=== PATIENT | male | born 1975 | race Caucasian/White ===

== ENCOUNTER 2018-04-03 08:28 | Emergency (ER) | payer OTHER, MEDICARE ==
[~2018-04-03] VITALS: Ht 177.8 cm; Wt 93.0 kg
[~2018-04-03 08:28] MED LIST: ASPIRIN EC325 M2 PO; BUSPIRONE30 MG PO; CALCIUM 500 + D1 TAB PO; CLOZAPINE100 MG PO; CLOZAPINE25 MG PO; CLOZAPINE50 MG PO; COLACE100 MG PO; EPIPEN AUT0.3 MG/0.3 IM; GABAPENTIN400 M1 PO; HYDROCORTISONE2.51 TOP; LEVOTHROID0.175 MG PO; LITHIUM CARBON450 MG PO; MASON NATURAL2000 IU PO; NIASPAN1000 MG PO; OMEGA-31000 MG PO; OXYBUTYNIN5 MG PO; SERTRALINE HCL100 MG PO; SIMVASTATIN20 MG PO; TRILEPTAL300 MG PO
[2018-04-03 08:31] VITALS: BP 138/81
--- NOTE | 2018-04-03 08:42 | ED PSYCHIATRIC COMPLAINT ---
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 Exam Limitations: no limitations Vital Signs & Intake/Output Vital Signs & Intake/Output Vital Signs Date Time Temp Pulse Resp B/P B/P Pulse O2 O2 Flow FiO2 Mean Ox Delivery Rate 04/03 0836 99 Room Air 04/03 0831 98.2 80 18 138/81 98 Room Air Allergies Coded Allergies: bee venom protein (honey bee) (UNKNOWN 04/03/18) Reconcile Medications Aspirin (Ecotrin*) 325 MG TABLET.DR 1 TAB PO DAILY HEART HEALTH (Reported) BUSPIRONE HCL (Buspirone HCl) 30 MG TAB 1 TAB PO BID MENTAL HEALTH (Reported) Calcium/Vitamin D (Calcium + D) 500 MG/125 IU TAB 1 TAB PO BID SUPPLEMENT ( Reported) CHOLECALCIFEROL (VITAMIN D3) (Vitamin D) 2,000 IU SGL 1 CAP PO QAM SUPPLEMENT (Reported) Clozapine 25 MG TAB 1 TAB PO PRN MENTAL HEALTH (Reported) Clozapine 50 MG TAB 150 MG PO QPM MENTAL HEALTH (Reported) Clozapine 100 MG TAB 1 TAB PO QAM MENTAL HEALTH (Reported) Docusate Sodium (Colace) 100 MG SGL 1 CAP PO BID STOOL SOFTENER (Reported) Epinephrine (Epipen Auto-Injector) 0.3 MG/0.3 ML KIT 0.3 MG IM AD PRN ANAPHYLAXIS (Reported) Gabapentin 400 MG TAB 1 TAB PO TID UNKNOWN (Reported) Hydrocortisone (Unknown Strength) CRE 1 MARTHA TOP AD PRN FACE (Reported) Levothyroxine Sodium (Levothroid) 0.175 MG TAB 1 TAB PO DAILY THYROID ( Reported) [place] Carbonate ([place] Carbonate ER) [address] 1 TAB PO BID MENTAL HEALTH (Reported) Niacin (Niaspan) 1,[address] 1 TAB PO QPM CHOLESTEROL/TRIGLYCERIDES ( Reported) [place]-3 FATTY ACIDS/FISH OIL ([place] 3 1,000 MG Softgel) 1,000 MG SGL 1 SGL PO BID SUPPLEMENT (Reported) Oxcarbazepine (Trileptal) 300 MG TAB 900 MG PO QAM SEIZURES (Reported) Oxcarbazepine (Trileptal) 300 MG TAB 1,200 MG PO QPM SEIZURES (Reported) Oxybutynin Chloride 5 MG TAB 1 TAB PO QPM BLADDER (Reported) Sertraline HCl 100 MG TABLET 1.5 TAB PO DAILY MENTAL HEALTH (Reported) Simvastatin (Zocor) 20 MG TAB 20 MG PO QPM CHOLESTEROL (Reported) Triage Note: 42 YEAR OLD MALE TO ER FROM LOCAL ASSISTED FOR COMPLAINTS OF ANXIETY, PT ALERT AND ORIENTED TO PERSON AND PLACE, PER EMS THEY WERE CALLED DUE TO THE NURSE WAS UNABLE TO GET TO THE ASSISTED TO GIVE PT HIS MEDICATIONS AND THAT HE BECAME VERY ANXIOUS, PACING AND STARTED TO PANICK. PT NOTED TO BE VERY ANXIOUS AT THIS TIME, STATES THAT HE IS CONCERNED THAT HE WILL HAVE TO STAY IN THE HOSPITAL. PT REASSURED THAT HE WILL BE OK AND THAT AT THIS TIME THE PLAN IS TO ADMINISTER HIS MEDS AND GET HIM HOME Triage Nurses Notes Reviewed? yes Onset: Gradual Duration: constant Severity: mild Severity Numbers: 2 HPI: Patient is a 42-year-old male with a past medical history of anxiety as burgers borderline personality hypertension hyperlipidemia who presents emergency room by Peng Rubi for concerns of being at a longterm today in which the caregiver who has access to patient's medications was late for work and could not give patient his daily medications in the morning, patient is without symptoms and states "I feel bad for coming in". Patient does arrive with medication list. (William Cavazos) Past History Travel History Traveled to [place] past 21 day No Medical History Any Pertinent Medical History? 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 No (William Cavazos) Review of Systems Review of Systems Constitutional: Reports: no symptoms. EENTM: Reports: no symptoms. Respiratory: Reports: no symptoms. Cardiovascular: Reports: no symptoms. GI: Reports: no symptoms. Genitourinary: Reports: no symptoms. Musculoskeletal: Reports: no symptoms. Skin: Reports: no symptoms. Neurological/Psychological: Reports: see HPI. Hematologic/Endocrine: Reports: no symptoms. Immunologic/Allergic: Reports: no symptoms. All Other Systems: Reviewed and Negative (William Cavazos) Physical Exam Physical Exam General Appearance: alert, anxious Head: atraumatic Eyes: Bilateral: normal appearance. Ears, Nose, Throat: hearing grossly normal Neck: normal inspection Respiratory: no respiratory distress Neurological/Psychiatric: no motor/sensory deficits, awake, anxious Appearance/Memory/Insight: denies illness Behavoir/Eye Contact/Speech: cooperative, normal speech, good eye contact Thoughts/Hallucinations: normal thought pattern, no apparent hallucination Skin: intact, normal color SAD PERSONS Done? patient not suicidal (William Cavazos) Progress Differential Diagnosis: drug intoxication, drug overdose, drug withdrawal, electrolyte abnormality, encephalitis, hypoglycemia, hypothyroidism, IC hem/mass /tumor, meningitis Plan of Care: Current Medications Sig/Adriana Start time Last Medication Dose Stop Time Status Admin Aspirin 325 MG ONCE ONE 04/03 0845 AC (Aspirin) 04/03 08 Buspirone HCl 30 MG ONCE ONE 04/03 0845 AC (Buspar) 04/03 08 Cholecalciferol 2,000 IU ONCE ONE 04/03 0845 AC (Vitamin D) 04/03 0846 Clozapine 100 MG ONCE ONE 04/03 0845 AC (Clozaril 100MG Tab) 04/03 0846 Docusate Sodium 100 MG ONCE ONE 04/03 0845 AC (Colace) 04/03 0846 Gabapentin 400 MG ONCE ONE 04/03 0845 AC (Neurontin) 04/03 0846 Levothyroxine Sodium 0.175 MG ONCE ONE 04/03 0845 AC (Synthroid) 04/03 0846 [place] Carbonate 450 MG ONCE ONE 04/03 0845 UNVr ([place] Carbonate) 04/03 0846 Oxcarbazepine 900 MG ONCE ONE 04/03 0845 AC (Trileptal 150MG Tab) 04/03 0846 Sertraline HCl 150 MG ONCE ONE 04/03 0845 AC (Zoloft) 04/03 0846 Patient's caregiver who has access to patient's MEDICATIONS at the longterm is here in which I discussed with her the medications that were administered in the ER Patient will be transported via the caregiver Patient was given his a.m. medications with no complications once the caregiver did arrive patient became less anxious (William Cavazos) Departure Departure Disposition: HOME OR SELF CARE Condition: Stable Clinical Impression Primary Impression: Medication refill Secondary Impressions: Anxiety Additional Instructions: As discussed continue home medications as directed. If symptoms worsen or IF YOU develop new concerning symptom return to emergency room Departure Forms: Customer Survey General Discharge Information (William Cavazos) PA/CONTROL ENGINEER Co-Sign Statement Statement: ED Attending supervision documentation- [] I saw and evaluated the patient. I have also reviewed all the pertinent lab results and diagnostic results. I agree with the findings and the plan of care as documented in the PA's/CONTROL ENGINEER's documentation. [X] I have reviewed the ED Record and agree with the PA's/CONTROL ENGINEER's documentation. [] Additions or exceptions (if any) to the PAs/CONTROL ENGINEER's note and plan are summarized below: [] (Tristian Vázquez DO)
== END 2018-04-03 09:23 ==
LOC: ERH 08:28
DX: Z76.0 Encounter for issue of repeat prescription (principal); F41.9 Anxiety disorder, unspecified
CPT/HCPCS: J3490

== ENCOUNTER 2018-06-05 09:41 | Emergency (ER) | payer OTHER, MEDICARE ==
[~2018-06-05] VITALS: Ht 167.6 cm; Wt 99.8 kg
[~2018-06-05 09:41] MED LIST changes: +BUSPIRONE HCL30 M1 PO; -BUSPIRONE30 MG PO; -CALCIUM 500 + D1 TAB PO; +CALCIUM 500 +1 EAC4 PO; -CLOZAPINE100 MG PO; -CLOZAPINE25 MG PO; +CLOZAPINE50 M1 PO; -CLOZAPINE50 MG PO; +CLOZARIL100 M1 PO; +CLOZARIL25 MG PO; +COLACE100 M1 PO; -COLACE100 MG PO; +DITROPAN XL5 M1 PO; +EPIPEN 2-P0.3 MG/0.3 IM; -EPIPEN AUT0.3 MG/0.3 IM; -GABAPENTIN400 M1 PO; +GABAPENTIN400 M2 PO; +HYDROCORTISO453.6 G1 TOP; -HYDROCORTISONE2.51 TOP; -LEVOTHROID0.175 MG PO; +LEVOTHYROXINE175 MCG PO; +LITHIUM CARBON450 M1 PO; -LITHIUM CARBON450 MG PO; -MASON NATURAL2000 IU PO; +NIASPAN1000 M1 PO; -NIASPAN1000 MG PO; +OMEGA 3 1,0001 EACH PO; -OMEGA-31000 MG PO; -OXYBUTYNIN5 MG PO; -SIMVASTATIN20 MG PO; +TRILEPTAL300 M1 PO; -TRILEPTAL300 MG PO; +TRILEPTAL600 M1 PO; +VITAMIN D2000 UNI1 PO; +ZOCOR20 M1 PO
--- NOTE | 2018-06-05 09:51 | ED PSYCHIATRIC COMPLAINT ---
History of Present Illness General Chief Complaint: Psychiatric Related Complaint Stated Complaint: BIBA FOR +SI Source: patient Exam Limitations: no limitations Vital Signs & Intake/Output Vital Signs & Intake/Output Vital Signs Date Time Temp Pulse Resp B/P B/P Pulse O2 O2 Flow FiO2 Mean Ox Delivery Rate 06/05 1343 98.0 92 20 126/72 98 06/05 1147 Room Air 06/05 0950 98.2 78 20 126/82 95 Room Air Allergies Coded Allergies: bee venom protein (honey bee) (UNKNOWN 04/03/18) Reconcile Medications Aspirin (Ecotrin*) 325 MG TABLET.DR 1 TAB PO DAILY HEART HEALTH (Reported) Buspirone HCl 30 MG TABLET 1 TAB PO BID MENTAL HEALTH (Reported) Calcium Carbonate/Vitamin D3 (Calcium 500 + Vit D3 400 Tab) 500 MG-400 TABLET 1 TAB PO BID VITAMIN SUPPORT (Reported) Cholecalciferol (Vitamin D3) (Vitamin D) 2,000 UNIT TABLET 1 TAB PO DAILY VITAMIN SUPPORT (Reported) Clozapine (Clozaril) 25 MG TABLET 1 TAB PO DAILY PRN MENTAL HEALTH (Reported) Clozapine 50 MG TABLET 3 TAB PO QPM MENTAL HEALTH (Reported) Clozapine (Clozaril) 100 MG TABLET 1 TAB PO DAILY MENTAL HEALTH (Reported) Docusate Sodium (Colace) 100 MG CAPSULE 1 CAP PO BID STOOL SOFTENER (Reported ) Epinephrine (Epipen 2-Allen) 0.3 MG/0.3 ML AUTO.INJCT 1 INJ IM DAILY PRN ALLERGIES (Reported) Gabapentin 400 MG CAPSULE 1 CAP PO TID UNKNOWN (Reported) Hydrocortisone (Unknown Strength) CREAM..G. (Unknown Dose) TOP BID PRN FACE ( Reported) apply to affected area(s) Levothyroxine Sodium 175 MCG TABLET 1 TAB PO DAILY AC THYROID (Reported) [place] Carbonate ([place] Carbonate ER) 450 MG TABLET.ER 1 TAB PO BID MENTAL HEALTH (Reported) Niacin (Niaspan) 1,000 MG TAB.ER.24H 1 TAB PO QPM CHOLESTEROL (Reported) [place]-3 Fatty Acids/Fish Oil ([place] 3 1,000 MG Softgel) 300 MG-1,000 MG CAPSULE 1 CAP PO BID SUPPLEMENT (Reported) Oxcarbazepine (Trileptal) 300 MG TABLET 3 TAB PO DAILY MENTAL HEALTH ( Reported) Oxcarbazepine (Trileptal) 600 MG TABLET 2 TAB PO QPM MENTAL HEALTH (Reported) Oxybutynin Chloride (Ditropan XL) 5 MG TAB.ER.24 1 TAB PO QPM BLADDER ( Reported) Sertraline HCl 100 MG TABLET 1.5 TAB PO DAILY MENTAL HEALTH (Reported) Simvastatin (Zocor*) 20 MG TABLET 1 TAB PO QPM CHOLESTEROL (Reported) Triage Nurses Notes Reviewed? yes Onset: Gradual Duration: week(s): Timing: recent history Severity: moderate HPI: 42yo male with hx of jacklyn LATIF from care for +SI statement. Patient is complaining of feeling overwhelmed relating to various aspects of his life. He reports his video games stress him. PAtient reports intermittent SI relating to feeling overwhelmed. He states he thinks about running away where he can be alone. Patient states he does not believe he would harm himself at his [facility]. He states he starts to feel this way when he doesn't get his meds. He denies HI, hallucinations, drug use. (Antonietta Major) Past History Travel History Traveled to [place] past 21 day No Medical History Any Pertinent Medical History? 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 No (Antonietta Major) Review of Systems Review of Systems Constitutional: Reports: no symptoms. EENTM: Reports: no symptoms. Respiratory: Reports: no symptoms. Cardiovascular: Reports: no symptoms. GI: Reports: no symptoms. Genitourinary: Reports: no symptoms. Musculoskeletal: Reports: no symptoms. Skin: Reports: no symptoms. Neurological/Psychological: Reports: see HPI. Hematologic/Endocrine: Reports: no symptoms. Immunologic/Allergic: Reports: no symptoms. All Other Systems: Reviewed and Negative (Antonietta Major) Physical Exam Physical Exam General Appearance: well developed/nourished, no apparent distress, alert, awake Head: atraumatic, normal appearance Eyes: Bilateral: normal appearance. Ears, Nose, Throat: hearing grossly normal Neck: normal inspection, supple, full range of motion Respiratory: normal breath sounds, no respiratory distress, lungs clear Cardiovascular: regular rate/rhythm Extremities: normal range of motion Neurological/Psychiatric: awake, alert, calm Appearance/Memory/Insight: appropriate appearance Behavoir/Eye Contact/Speech: cooperative, good eye contact Thoughts/Hallucinations: normal thought pattern, no apparent hallucination Skin: intact, normal color, warm/dry SAD PERSONS SAD PERSONS Response Value Male Sex? yes 1 Depression/Hopelessness? yes 2 Social Support? has support 0 Total 3 SAD PERSONS Done? yes (Jacklyn ROMAN,Antonietta Billingsley) Progress Differential Diagnosis: dementia, drug intoxication, drug overdose, depression, suicidal ideation Plan of Care: Orders Procedure Date/time Status Regular Diet 06/05 L Active Continuous Observation Monitor 06/05 945 Active URINE DRUG SCREEN FOR ER ONLY 06/05 945 Complete URINALYSIS 06/05 945 Complete ETHANOL 06/05 945 Complete COMPREHENSIVE METABOLIC PANEL 06/05 945 Complete CBC WITHOUT DIFFERENTIAL 06/05 945 Complete ED CRISIS PSYCH CONSULT 06/05 945 Active Laboratory Tests 06/05/18 1309: Urine Opiates Screen < 100, Methadone Screen < 40, Barbiturate Screen < 60, Ur Phencyclidine Scrn < 6.00, Amphetamines Screen < 100, U Benzodiazepines Scrn < 85, Urine Cocaine Screen < 50, Urine Cannabis Screen < 5.00, Urine Color YEL, Urine Clarity CLEAR, Urine pH 7.0, Ur Specific [place] 1.010, Urine Protein NEG, Urine Ketones NEG, Urine Nitrite NEG, Urine Bilirubin NEG, Urine Urobilinogen 0.2, Ur Leukocyte Esterase TRACE H, Ur Microscopic SEDIMENT EXAMINED, Urine RBC RARE, Urine WBC RARE, Urine Hemoglobin NEG, Urine Glucose NEG 06/05/18 0958: Anion Gap 14, Estimated GFR > 60, BUN/Creatinine Ratio 16.0, Glucose 107 H, Calcium 10.4 H, Total Bilirubin 0.4, AST 31, ALT 56, Alkaline Phosphatase 86, Total Protein 7.6, Albumin 4.7, Globulin 2.9, Albumin/Globulin Ratio 1.6, CBC w Diff MAN DIFF ORDERED, RBC 4.68 L, MCV 90.4, MCH 31.0, MCHC 34.3, RDW 12.8, MPV 7.2 L, Gran % 68.5, Lymphocytes % 21.3, Monocytes % 7.0, Eosinophils % 2.6, Basophils % 0.6, Absolute Granulocytes 5.1, Segmented Neutrophils 61, Band Neutrophils 2, Absolute Lymphocytes 1.6, Lymphocytes 24, Monocytes 7, Absolute Monocytes 0.5, Eosinophils 5, Absolute Eosinophils 0.2, Basophils 1, Absolute Basophils 0, Platelet Estimate ADEQUATE, Anisocytosis 1+, Serum Alcohol < 10.0 Patient's labs are stable, awaiting crisis evaluation. The patient was seen and evaluated by crisis. The patient has several care groups to follow up with. long-term was contacted and they felt comfortable with the patient returning to the home. Patient agrees with plan for returning to [facility] and outpatient follow-up. (Jacklyn ROMAN,Antonietta Billingsley) Departure Departure Disposition: STILL A PATIENT Condition: Stable Clinical Impression Primary Impression: Schizoaffective disorder Qualifiers: Schizoaffective disorder type: unspecified Qualified Code: F25.9 - Schizoaffective disorder, unspecified Referrals: Jean Mccloud APRN (PCP/Family) Additional Instructions: Follow-up with psychiatry as scheduled. Return if you have any worsening symptoms or concerns. Please note that there might be incidental findings in your evaluation that are unrelated to the current emergency department visit. Please notify your primary care doctor about this emergency department visit in order to obtain and review all of the testing performed so that these incidental findings can be monitored as needed. If you had an x-ray performed, please understand that some fractures may not be seen on the initial set of x-rays. If your symptoms persist you might need a repeat set of x-rays to check for such a fracture. If you had a laceration evaluated, please understand that foreign bodies such as glass or wood may not be visible to the naked eye or on plain x-rays. If the wound becomes red, swollen, increasingly more painful or if there is any drainage from the wound, please have it reevaluated by a physician for the possibility of a retained foreign body. If you're unable to follow up as outlined in the discharge instructions please return to the emergency department. Thank you for choosing the [facility] Emergency Department for your care. It was a pleasure to serve you today. Departure Forms: Customer Survey General Discharge Information (Antonietta Major) PA/ENTRY LEVEL AUTOMOTIVE TECHNICIAN Co-Sign Statement Statement: ED Attending supervision documentation- [] I saw and evaluated the patient. I have also reviewed all the pertinent lab results and diagnostic results. I agree with the findings and the plan of care as documented in the PA's/ENTRY LEVEL AUTOMOTIVE TECHNICIAN's documentation. [x] I have reviewed the ED Record and agree with the PA's/ENTRY LEVEL AUTOMOTIVE TECHNICIAN's documentation. [] Additions or exceptions (if any) to the PAs/ENTRY LEVEL AUTOMOTIVE TECHNICIAN's note and plan are summarized below: [] (Kwan Lynn DO)
[2018-06-05 10:12] LABS: ABSOLUTE BASOPHIL COUNT 0 /CUMM (0.0-0.2); ABSOLUTE EOSINOPHIL COUNT 0.2 /CUMM (0.0-0.7); ABSOLUTE GRANULOCYTE CT 5.1 /CUMM (1.4-6.5); ABSOLUTE LYMPH COUNT 1.6 /CUMM (1.2-3.4); ABSOLUTE MONOCYTE COUNT 0.5 /CUMM (0.10-0.60); BASOPHIL % 0.6 % (0.0-2.0); EOSINOPHIL % 2.6 % (0-5); GRANULOCYTE % 68.5 % (42.2-75.2); HEMATOCRIT 42.3 % (42-52); MEAN CORPUSCULAR HGB CONC 34.3 G/DL (33.0-37.0); MEAN CORPUSCULAR VOLUME 90.4 FL (80.0-94.0); MEAN PLATELET VOLUME 7.2 FL (7.4-10.4); PLATELET COUNT 164 /CUMM (130-400); RBC DISTRIBUTION WIDTH 12.8 % (11.5-14.5); RED BLOOD CELL CT 4.68 /CUMM (4.70-6.10); WHITE BLOOD CELL COUNT 7.5 /CUMM (4.8-10.8)
[2018-06-05 13:43] VITALS: BP 126/72
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
== END 2018-06-05 14:53 ==
LOC: ERH 09:41
PROVIDERS: Physician Assistant
DX: F25.9 Schizoaffective disorder, unspecified (principal)
CPT/HCPCS: 80307; 81001; G0463; G0480